=== PATIENT | female | born 1965 | race Caucasian/White ===

== ENCOUNTER 2016-07-18 03:31 | Emergency (ER) | payer BC ==
[2016-07-18 04:15] LABS: Hematocrit 43 % (35-47); Hemoglobin 14.2 g/dl (12.0-16.0); Mean Corpuscular HGB Conc 33 g/dl (31-36); Mean Corpuscular Hemoglobin 28 pg (27-31); Mean Corpuscular Volume 86 fL (80-97); Mean Platelet Volume 8 um3 (7.4-10.4); Red Blood Count 5.05 10^6/ul (4.0-5.4); Red Cell Distribution Width 14 % (10.5-15); White Blood Count 8.6 10^3/ul (3.5-10.8)
[2016-07-18 04:27] LABS: Albumin 3.9 g/dL (3.2-5.2); BUN/Creatinine Ratio 17.2 (8-20); Calcium 9.4 mg/dL (8.6-10.3); EGFR African American 87.6 (>60); EGFR Non-African American 68.1 (>60); Potassium 3.9 mmol/L (3.5-5.0); Total Bilirubin 0.4 mg/dL (0.2-1.0); Total Protein 6.9 g/dL (6.4-8.9)
[2016-07-18] MEDS ORDERED: Diazepam TAB(*) 5 MG PO ONE (04:53)
--- NOTE | 2016-07-18 05:09 | ED ---
I, Oh,Somaco, scribed for Artemio Mora MD on 07/18/16 at 0349 . Headache - HPI Summary HPI Summary: This 51 y/o female presents to ED for left sided occipital pain since 2 days ago. Pt was sitting at [employer] at time of onset. Ice pack didn't alleviate the MONIQUE. Coughing makes the pain worse. Neck movement doesn't make pain worse. Pt took IBP yesterday afternoon without much relief. Negative photophobia, n/v, neck pain, slurred speech, focal weakness. PMHx does includes borderline HLD, but does not include HTN, DM, cardiac dz, or known migraine. Pt is a current smoker. Plan of care involving bloodwork and CT imaging study is discussed with pt, and she is agreeable. Pt refuses any pain med at this moment. - History Of Current Complaint Chief Complaint: EDHeadache Stated Complaint: SHOOTING PAIN ON LEFT SIDE OF HEAD Time Seen by Provider: 07/18/16 03:41 Hx Obtained From: Patient, Medical Records Onset/Duration: Gradual Onset, Started days ago, Still Present Timing: Constant Character: Sharp Location of Headache: Occipital - left sided Aggravating Factor: Other - coughing or laughing Allevating Factors: Nothing - Allergies/Home Medications Allergies/Adverse Reactions: Allergies Allergy/AdvReac Type Severity Reaction Status Date / Time No Known Allergies Allergy Verified 12/10/14 12:34 PMH/Surg Hx/FS Hx/Imm Hx - Cancer History Hx Chemotherapy: No Hx Radiation Therapy: No Infectious Disease History: Denies: Traveled Outside the [place] in Last 30 Days - Family History Known Family History: Positive: Other - Positive breast CA to MGM - Social History Alcohol Use: Rare Hx Substance Use: No Substance Use Type: Reports: None Hx Tobacco Use: Yes Smoking Status (MU): Current Every Day Smoker Review of Systems Negative: Fever Negative: Photophobia Negative: Vomiting, Nausea Positive: Headache. Negative: Weakness, Slurred Speech All Other Systems Reviewed And Are Negative: Yes Physical Exam - Summary Physical Exam Summary: The patient is well-nourished in no acute distress and in no acute pain. The skin is warm and dry and skin color reflects adequate perfusion. HEENT: The head is normocephalic and atraumatic. The pupils are equal and reactive. The conjunctivae are clear and without drainage. Nares are patent and without drainage. Mouth reveals moist mucous membranes and the throat is without erythema and exudate. The external ears are intact. The ear canals are patent and without drainage. The tympanic membranes are intact. Neck is supple with full range of motion and non-tender. There are no carotid bruits. There is no neck vein distension. Respiratory: Chest is non-tender. Lungs are clear to auscultation and breath sounds are symmetrical and equal. Cardiovascular: Hear is regular rate and rhythm. There is no murmur or rub auscultated. There is no peripheral edema and pulses are symmetrical and equal. Abdomen: The abdomen is soft and non-tender. There are normal bowel sounds heard in all four quadrants and there is no organomegaly palpated. Musculoskeletal: There is no back pain noted. Extremities are non-tender with full range of motion. There is good capillary refill. There is no peripheral edema or calf tenderness elicited. Neurological: Patient is alert and oriented to person, place and time. The patient has symmetrical motor strength in all four extremities. Cranial nerves are grossly intact. Deep tendon reflexes are symmetrical and equal in all four extremities. Psychiatric: The patient has an appropriate affect and does not exhibit any anxiety or depression. Triage Information Reviewed: Yes Vital Signs On Initial Exam: Initial Vitals Temp Pulse Resp BP Pulse Ox 97 F 80 18 147/79 98 07/18/16 03:34 07/18/16 03:34 07/18/16 03:34 07/18/16 03:34 07/18/16 03:34 Vital Signs Reviewed: Yes Diagnostics - Vital Signs Vital Signs Temp Pulse Resp BP Pulse Ox 07/18/16 03:34 97 F 80 18 147/79 98 - Laboratory Lab Results: Lab Results 07/18/16 07/18/16 07/18/16 Range/Units 04:00 04:00 04:00 WBC 8.6 (3.5-10.8) 10^3/ul RBC 5.05 (4.0-5.4) 10^6/ul Hgb 14.2 (12.0-16.0) g/dl Hct 43 (35-47) % MCV 86 (80-97) fL MCH 28 (27-31) pg MCHC 33 (31-36) g/dl RDW 14 (10.5-15) % Plt Count 229 (150-450) 10^3/ul MPV 8 (7.4-10.4) um3 Neut % (Auto) 56.8 (38-83) % Lymph % (Auto) 33.5 (25-47) % [place] % (Auto) 6.4 (1-9) % Eos % (Auto) 2.8 (0-6) % Baso % (Auto) 0.5 (0-2) % Absolute Neuts (auto) 4.9 (1.5-7.7) 10^3/ul Absolute Lymphs (auto) 2.9 (1.0-4.8) 10^3/ul Absolute Monos (auto) 0.5 (0-0.8) 10^3/ul Absolute Eos (auto) 0.2 (0-0.6) 10^3/ul Absolute Basos (auto) 0 (0-0.2) 10^3/ul Absolute Nucleated RBC 0.01 10^3/ul Nucleated RBC % 0.1 ESR Pending Sodium 136 (133-145) mmol/L Potassium 3.9 (3.5-5.0) mmol/L Chloride 106 (101-111) mmol/L Carbon Dioxide 23 (22-32) mmol/L Anion Gap 7 (2-11) mmol/L BUN 15 (6-24) mg/dL Creatinine 0.87 (0.51-0.95) mg/dL Est GFR ( Amer) 87.6 (>60) Est GFR (Non-Af Amer) 68.1 (>60) BUN/Creatinine Ratio 17.2 (8-20) Glucose 107 H (70-100) mg/dL Lactic Acid 1.0 (0.5-2.0) mmol/L Calcium 9.4 (8.6-10.3) mg/dL Total Bilirubin 0.40 (0.2-1.0) mg/dL AST 18 (13-39) U/L ALT 16 (7-52) U/L Alkaline Phosphatase 74 (34-104) U/L Total Protein 6.9 (6.4-8.9) g/dL Albumin 3.9 (3.2-5.2) g/dL Globulin 3.0 (2-4) g/dL Albumin/Globulin Ratio 1.3 (1-3) Result Diagrams: 07/18/16 04:00 07/18/16 04:00 Lab Statement: Any lab studies that have been ordered have been reviewed, and results considered in the medical decision making process. - CT Brain CT Interpretation: No Acute Changes CT Interpretation Completed By: Radiologist Re-Evaluation - Re-Evaluation First Eval Re-Evaluation Time: 04:50 Comment: Dr. Mora in room to update pt on CT imaging results and bloodwork. Hard copies of bloodwork and CT studies are provided to pt. Pt is agreeable to discharge. Headache Course/Dx - Course Assessment/Plan: This 51 y/o female presents to ED for acute onset of left occipital MONIQUE since 2 days ago. Physical examination, CT Brain, and bloodwork are indicated wnl. Results were shared, and pt was agreeable to discharge. - Diagnoses Differential Diagnosis/HQI/PQRI: Migraine, Tension Headache Provider Diagnoses: Occipital headache Discharge - Discharge Plan Condition: Stable Disposition: HOME Patient Education Materials: General Headache (ED) Referrals: Lizzette Garcia NP [Primary Care Provider] - 2 Days The documentation as recorded by the Bronson verma Soohyun accurately reflects the service I personally performed and the decisions made by Abby reddy Drew, MD.
[2016-07-18 05:11] VITALS: BP 140/72
[2016-07-18 05:16] LABS: Erythrocyte Sed Rate 17 mm/Hr (0-30)
--- NOTE | 2016-07-18 07:33 | RAD ---
INDICATION: Headache. COMPARISON: There are no prior studies available for comparison. TECHNIQUE: Contiguous axial sections of the brain were obtained from the skull base to the vertex without contrast. FINDINGS: The ventricles, cisterns and sulci are within normal limits. No significant focal abnormality or mass effect is seen. There is no evidence for hemorrhage. No significant focal osseous abnormality is seen. The visualized portion of the paranasal sinuses and mastoid air cells appear clear. IMPRESSION: NO EVIDENCE FOR ACUTE INTRACRANIAL ABNORMALITY.
== END 2016-07-18 05:11 | disposition home or self-care (01) ==
LOC: ED 03:31
DX: R51 Headache (principal)
CPT/HCPCS: 36415; 70450; 80053; 83605; 85025; 85652; 99283; A9270-GY